=== PATIENT | male | born 1970 | race Caucasian/White ===

== ENCOUNTER 2020-06-05 08:54 | Emergency (ER) | payer OTHER ==
[~2020-06-05] VITALS: Ht 165.1 cm; Wt 88.9 kg
[2020-06-05 08:59] VITALS: Ht 165.1 cm; Wt 88.9 kg
[2020-06-05 14:33] VITALS: BP 163/59
== END 2020-06-05 14:33 | disposition home or self-care (01) ==
LOC: ED 08:54
DX: S61.011A Laceration without foreign body of right thumb without damage to nail, initial encounter (principal); W22.8XXA Striking against or struck by other objects, initial encounter; Y93.89 Activity, other specified; Y92.89 Other specified places as the place of occurrence of the external cause; Y99.8 Other external cause status
CPT/HCPCS: 90715; A4570; J2001